=== PATIENT | male | born 1955 | race Caucasian/White ===

== ENCOUNTER → 2016-03-19 | Outpatient (CLI) | payer BC | END | disposition home or self-care (01) | LOC: PCVCIMAG 12:48 | PROVIDERS: ATTEND Nuclear Medicine Nuclear Cardiology | DX: I73.9 Peripheral vascular disease, unspecified (principal); I77.9 Disorder of arteries and arterioles, unspecified; I10 Essential (primary) hypertension; E78.00 Pure hypercholesterolemia, unspecified | CPT/HCPCS: 93923; 93925; 93924 ==

== ENCOUNTER → 2016-04-30 | Outpatient (CLI) | payer BC | END | disposition home or self-care (01) | LOC: PCVCIMAG 10:16 | PROVIDERS: ATTEND Internal Medicine Cardiovascular Disease | DX: I10 Essential (primary) hypertension (principal); E78.00 Pure hypercholesterolemia, unspecified; Z82.49 Family history of ischemic heart disease and other diseases of the circulatory system | CPT/HCPCS: 93325; 93351 ==

== ENCOUNTER → 2016-05-21 | Outpatient (CLI) | payer BC ==
[~2016-05-21] MED LIST: CEFAZOLIN 2GM PREMIX 50 ML IV ONE; DIAZEPAM 10 MG TABLET. ONE; FENTANYL PF 100 MCG/2 ML VIAL. ONE; HEPARIN SODIUM 5,000 UNIT/ML VIAL. ONE; HEPARIN for ARTERIAL LINE 1,500 ML ONE; IODIXANOL 270 MG/ML 100 ML VIAL. ONE; IOHEXOL 350 MG/ML 100 ML VIAL. ONE; IV NORMAL SALINE 1000ML BAG 1,000 ML ONE; IV NORMAL SALINE 500ML BAG 500 ML ONE; LIDOCAINE 1% Multi-Dose 20 ML VIAL. ONE; MIDAZOLAM HCL/PF 2 MG/2 ML VIAL. ONE
== END | disposition home or self-care (01) ==
LOC: PCVCINTER 11:17
PROVIDERS: ATTEND Nuclear Medicine Nuclear Cardiology
DX: I70.202 Unspecified atherosclerosis of native arteries of extremities, left leg (principal); I70.0 Atherosclerosis of aorta; I70.1 Atherosclerosis of renal artery; I15.0 Renovascular hypertension; T82.856A Stenosis of peripheral vascular stent, initial encounter
CPT/HCPCS: 36252; 37186; 37229; 75716; 76937; 93458; C1725; C1751; C1757; C1760; C1769; C1885; C1894; J0690; J1644; J2250; J3010; J7030; J7040; Q9967

== ENCOUNTER → 2017-09-09 | Outpatient (CLI) | payer BC | END | disposition home or self-care (01) | LOC: PCVCIMAG 16:11 | DX: I73.9 Peripheral vascular disease, unspecified (principal) | CPT/HCPCS: 93925 ==

== ENCOUNTER → 2018-06-16 | Outpatient (CLI) | payer BC ==
--- NOTE | 2018-06-16 14:43 | PCVCIMAG ---
EXAM: BILATERAL CAROTID DUPLEX INDICATION: Carotid Occlusive Disease. FINDINGS: Doppler Measurements (centimeters per second): RIGHT: Peak CCA-79, Peak ECA-108, Diastolic ICA-42, Peak ICA-154, ICA/CCA Ratio-1.9. LEFT: Peak CCA-91, Peak ECA-85, Diastolic ICA-22, Peak ICA-72, ICA/CCA Ratio-0.9. RIGHT CAROTID: The carotid bulb has moderate plaque. The proximal internal carotid artery shows 60% stenosis. The common carotid artery shows no significant stenosis. The external carotid artery shows no significant stenosis. LEFT CAROTID: The carotid bulb has moderate plaque. The proximal internal carotid artery shows <40% stenosis. The common carotid artery shows no significant stenosis. The external carotid artery shows no significant stenosis. Antegrade flow in both vertebral arteries. IMPRESSION: 60% stenosis of the right internal carotid artery with moderate plaque. <40% stenosis of the left internal carotid artery with moderate plaque. Slight progression of right carotid stenosis since 2016 study. LOC:[id number]
--- NOTE | 2018-06-16 20:23 | PCVCIMAG ---
EXAM: BILATERAL LOWER EXTREMITY ARTERIAL DUPLEX INDICATION: Peripheral Arterial Disease. Leg pain. FINDINGS: Right Leg: Common femoral profunda femoral arteries are patent. Superficial femoral and popliteal artery are patent including previous stents. 70% stenosis tibioperoneal trunk is unchanged. Occlusion of the mid/distal anterior and posterior tibial arteries. Peroneal artery is patent. Left Leg: Common femoral artery is patent. Mild stenosis origin profunda femoral artery. Superficial femoral artery is patent. 40-50% stenosis mid popliteal artery. Peroneal artery is diminutive in size. Anterior tibial and posterior tibial arteries are patent. IMPRESSION: Previous right superficial femoral-popliteal artery stents maintaining satisfactory patency. Unchanged 70% stenosis right tibioperoneal trunk. 40-50% stenosis mid [place] left popliteal artery. LOC:[id number]
== END | disposition home or self-care (01) ==
LOC: PCVCIMAG 13:23
PROVIDERS: ATTEND Internal Medicine Cardiovascular Disease
DX: I65.23 Occlusion and stenosis of bilateral carotid arteries (principal); E78.00 Pure hypercholesterolemia, unspecified; I77.9 Disorder of arteries and arterioles, unspecified; I73.9 Peripheral vascular disease, unspecified
CPT/HCPCS: 93880; 93925